=== PATIENT | female | born 1950 | race Caucasian/White ===

== ENCOUNTER 2022-02-25 11:58 | Emergency (ER) | payer MEDICARE ==
[2022-02-25 13:29] LABS: BASOPHIL 0.5 % (0-2); EOSINOPHIL 2.1 % (0-7); HCT 38.2 % (37.0-47.0); HGB 12.8 g/dl (12.5-16.0); LYMPHOCYTE 20.6 % (15-48); MCH 29.8 pg (25.0-31.0); MCHC 33.5 g/dL (32.0-36.0); MONOCYTE 10.4 % (0-12); MPV 9.9 fL (6.0-9.5); NEUTROPHIL 66.2 % (41-80); NRBC 0; PLT 207 K/uL (150-400); RBC 4.29 M/uL (4.20-5.40); RDW 11.6 % (11.5-14.0); WBC 6.6 K/uL (4.0-10.5)
[2022-02-25 13:33] LABS: BILIRUBIN NEGATIVE (NEGATIVE); BLOOD NEGATIVE Ery/uL (NEGATIVE); CLARITY CLEAR (CLEAR); COLOR YELLOW (YELLOW); GLUCOSE (U) NORMAL (NORMAL); LEUKOCYTES NEGATIVE Leu/uL (NEGATIVE); NITRITE NEGATIVE (NEGATIVE); PROTEIN NEGATIVE (NEGATIVE); SPECIFIC GRAVITY <=1.005 (1.001-1.030); UROBILINOGEN 0.2 mg/dL (0.2-1.0)
[2022-02-25 13:33] LABS: INR 0.97 (0.9-1.2); PROTHROMBIN TIME 12.6 SECONDS (11.9-13.9); PTT 26.1 SECONDS (24.9-34.6)
[2022-02-25 13:34] LABS: AMPHETAMINES NEGATIVE (NEGATIVE); BARBITURATES NEGATIVE (NEGATIVE); ECSTASY (MDMA) NEGATIVE (NEGATIVE); MARIJUANA (THC) NEGATIVE (NEGATIVE); METHADONE NEGATIVE (NEGATIVE); OPIATES NEGATIVE (NEGATIVE); OXYCODONE NEGATIVE (NEGATIVE)
[2022-02-25 13:41] LABS: ALBUMIN 3.8 g/dL (3.4-5.0); BILIRUBIN - TOTAL 0.4 mg/dL (0.2-1.0); BUN/CREAT RATIO (CALC) 28.1 RATIO; CREATININE 0.64 mg/dL (0.51-0.95); GLOBULIN (CALCULATION) 2.6 g/dL; POTASSIUM 4.4 mmol/L (3.5-5.1); TOTAL PROTEIN 6.4 g/dL (6.4-8.2)
[2022-02-25] MEDS ORDERED: BACLOFEN 10MG T10 MG PO (15:19)
== END 2022-02-25 15:49 | disposition home or self-care (01) ==
LOC: FER 11:58
PROVIDERS: Physician Assistant
DX: R25.8 Other abnormal involuntary movements (principal); E87.1 Hypo-osmolality and hyponatremia; J45.909 Unspecified asthma, uncomplicated
CPT/HCPCS: 36415; 70450; 80053; 80305; 81003; 83735; 85025; 85610; 85730; 93005; J7030